=== PATIENT | male | born 1980 | race Hispanic/Latino ===

== ENCOUNTER 2016-11-07 19:02 | Emergency (ER) | payer OTHER ==
[~2016-11-07] VITALS: Ht 175.3 cm; Wt 65.0 kg
[2016-11-07 19:02] VITALS: BP 115/66
[2016-11-07] MEDS ORDERED: CIPR-249 PO (21:56)
[2016-11-07] MEDS ORDERED: PYRI1TAB5 PO (21:56)
[2016-11-07] MEDS ORDERED: PHENAZOPYRIDINE 100 MG TAB PO ONE (22:00)
[2016-11-07] MEDS ORDERED: CIPROFLOXACIN 500 MG TAB PO ONE (22:00)
== END 2016-11-07 22:10 | disposition home or self-care (01) ==
LOC: M ED 19:02
DX: N30.01 Acute cystitis with hematuria (principal)

== ENCOUNTER 2017-06-02 22:57 | Emergency (ER) | payer OTHER ==
[2017-06-03] MEDS: predniSONE 20 MG TAB PO (00:58)
== END 2017-06-03 01:06 | disposition home or self-care (01) ==
LOC: M ED 22:57
DX: L29.9 Pruritus, unspecified (principal); R21 Rash and other nonspecific skin eruption; T78.40XA Allergy, unspecified, initial encounter; X58.XXXA Exposure to other specified factors, initial encounter; Y92.89 Other specified places as the place of occurrence of the external cause
CPT/HCPCS: 99282

== ENCOUNTER 2018-05-13 19:10 | Emergency (ER) | payer OTHER ==
[~2018-05-13] VITALS: Ht 175.3 cm; Wt 70.5 kg
[~2018-05-13 19:10] MED LIST: BENA25CA4 PO; CIPR-249 PO; OLOP1OPD OS; PRED20TA PO; PYRI1TAB5 PO
[2018-05-13] MEDS ORDERED: ZOLO50TA PO (19:14)
[2018-05-13] MEDS ORDERED: MECLIZINE 25 MG TABLET PO ONE (19:45)
[2018-05-13 19:47] LABS: BASO # 0.1 10^3/uL (0.0-0.2); EOS # 0.2 10^3/uL (0.0-0.50); EOS % 2.9 % (0.0-3.0); HEMATOCRIT 43.1 % (42.0-52.0); HEMOGLOBIN 14.3 g/dl (13.5-17.5); LYMPH # 2.2 10^3/uL (1.5-4.5); LYMPH % 38.8 % (24.0-44.0); MEAN CORPUSCULAR HEMOGLOBIN 26.3 pg (27.0-33.0); MEAN CORPUSCULAR HGB CONC 33.2 g/dl (32.0-36.5); MEAN CORPUSCULAR VOLUME 79.2 fl (80.0-96.0); MONO # 0.3 10^3/uL (0.0-0.8); MONO % 5.7 % (0.0-5.0); NEUTROPHILS % 51.4 % (36.0-66.0); PLATELET COUNT, AUTOMATED 156 10^3/uL (150-450); RED BLOOD COUNT 5.44 10^6/uL (4.30-6.10); WHITE BLOOD COUNT 5.8 10^3/uL (4.0-10.0)
[2018-05-13 20:15] LABS: ACETAMINOPHEN LEVEL < 2.0 UG/ML (10.0-30.0); ALBUMIN 4.1 GM/DL (3.2-5.2); ALT/SGPT 29 U/L (12-78); BILIRUBIN,DIRECT 0.1 MG/DL (0.0-0.2); BILIRUBIN,TOTAL 0.3 MG/DL (0.2-1.0); BLOOD UREA NITROGEN 12 MG/DL (7-18); CALCIUM LEVEL 8.6 MG/DL (8.5-10.1); CARBON DIOXIDE LEVEL 28 MEQ/L (21-32); CHLORIDE LEVEL 105 MEQ/L (98-107); CK-MB VALUE MASS < 1.0 NG/ML (<3.6); CPK CREATINE PHOSPHOKINASE 106 U/L (39-308); CREATININE FOR GFR 0.94 MG/DL (0.70-1.30); ETHYL ALCOHOL (ETHANOL) < 0.003 % (0.000-0.010); GLOMERULAR FILTRATION RATE > 60.0 (>60); GLUCOSE, FASTING 84 MG/DL (70-100); MB/CK RELATIVE INDEX 0.94 (< OR =4); POTASSIUM SERUM 3.8 MEQ/L (3.5-5.1); SALICYLATE LEVEL < 1.7 MG/DL (5.0-30.0); SODIUM LEVEL 140 MEQ/L (136-145); TOTAL PROTEIN 7.3 GM/DL (6.4-8.2); TROPONIN I < 0.02 NG/ML (< 0.10)
--- NOTE | 2018-05-13 20:28 | REPVR ---
EXAM: CT Head Without Contrast EXAM DATE/TIME: 05/13/2018 7:57 PM CLINICAL HISTORY: 37 years old, male; Signs and symptoms; Altered mental status/memory loss TECHNIQUE: Axial computed tomography images of the head/brain without contrast. All CT scans at this facility use at least one of these dose optimization techniques: automated exposure control; mA and/or kV adjustment per patient size (includes targeted exams where dose is matched to clinical indication); or iterative reconstruction. COMPARISON: No relevant prior studies available. FINDINGS: Brain: Normal. No hemorrhage. No significant white matter disease. No edema. Ventricles: Normal. No ventriculomegaly. Bones/joints: Normal. No acute fracture. Sinuses: Normal as visualized. No acute sinusitis. Mastoid air cells: Normal as visualized. No mastoid effusion. Soft tissues: Normal. IMPRESSION: No acute intracranial abnormality. Electronically signed by: Arnaldo Franco On 05/13/2018 20:27:53 PM
[2018-05-13 20:30] VITALS: BP 115/60
[2018-05-13] MEDS ORDERED: MECL-68 PO (20:42)
--- NOTE | 2018-05-14 14:46 | ECGEPIP ---
Stationary ECG Study [facility] - ED Test Date: 2018-05-13 Pat Name: SARAH GR Department: Room: - Gender: M [employer]: MD : [id number] Requested By: ARTHUR LIN Order Number: [id number] Reading MD: Livia Felder Measurements Intervals [place] Rate: 84 P: 28 RI: 136 QRS: 44 QRSD: 97 T: 47 QT: 313 QTc: 371 Interpretive Statements SINUS RHYTHM NONSPECIFIC T-WAVE ABNORMALITY NO PRIOR FOR COMPARISON Electronically Signed On 05-14-2018 14:46:24 EST by Livia Felder
== END 2018-05-13 20:51 | disposition home or self-care (01) ==
LOC: M ED 19:10
DX: H81.10 Benign paroxysmal vertigo, unspecified ear (principal); Z79.899 Other long term (current) drug therapy
CPT/HCPCS: 36415; 70450; 80048; 80076; 82550; 82553; 84443; 84484; 85025; 93005; 93041; 99284; G0480